=== PATIENT | female | born 1945 | race Caucasian/White ===

== ENCOUNTER 2021-09-22 13:00 | Emergency (ER) | payer BC, MEDICARE ==
[~2021-09-22] VITALS: Ht 160 cm; Wt 59.0 kg
[2021-09-22] MEDS ORDERED: LEVO50TA8 PO (14:13)
[2021-09-22] MEDS ORDERED: AMLO-212 PO (14:13)
--- NOTE | 2021-09-22 14:41 | NUR ---
Patient is awake ,alert, oriented x3 in no distres. States she is positive for covid. Sp02 99% on RA. EKG done. Covid swab sent to lab
--- NOTE | 2021-09-22 15:05 | NUR ---
Dr John aware of covid positive per lab
[2021-09-22 15:07] LABS: HEMATOCRIT 36.9 % (31.2-41.9); MEAN CORPUSCULAR HEMOGLOBIN 31.1 uug (24.7-32.8); MEAN CORPUSCULAR VOLUME 90.5 fL (75.5-95.3); PLATELET COUNT (AUTO) 335 K/uL (179-408)
[2021-09-22 15:18] LABS: CREATININE 0.8 mg/dL (0.6-1.3); POTASSIUM 4.2 mmol/L (3.5-5.1)
[2021-09-22 15:35] LABS: FERRITIN 71 ng/mL (8-252); LACTATE DEHYDROGENASE 206 U/L (81-234)
[2021-09-22] MEDS ORDERED: IV NORMAL SALINE 250 ML IV ONE (15:49)
[2021-09-22] MEDS ORDERED: IOHEXOL 350 100 ML INFUS..BTL ONE (15:49)
[2021-09-22] MEDS ORDERED: SWABABLE VALVE TRANSFER SET EA MC ONE (15:49)
[2021-09-22 15:57] LABS: BILIRUBIN,DIRECT 0.1 mg/dL (0.0-0.2); BILIRUBIN,TOTAL 0.4 mg/dL (0.2-1.0); TOTAL PROTEIN, SERUM 7.4 g/dL (6.4-8.2)
[2021-09-22] MEDS ORDERED: AZITHROMYCIN 250 MG TABLET PO ONE (17:00)
[2021-09-22] MEDS ORDERED: DEXAMETHASONE SOD PHOSPHATE 4 MG INJ IV ONE (17:00)
[2021-09-22] MEDS ORDERED: AZITHROMYCIN 250 MG TABLET ONE (17:13)
[2021-09-22] MEDS ORDERED: DEXAMETHASONE SOD PHOSPHATE 4 MG INJ ONE (17:13)
--- NOTE | 2021-09-22 17:16 | NUR ---
Patient ambulate to bathroom with steady gait, denied increasing SOB. Sp02 99%
--- NOTE | 2021-09-22 17:17 | NUR ---
IV removed. Catheter intact and site benign. Pressure and 4x4 gauze applied to site. No bleeding noted.
--- NOTE | 2021-09-22 17:17 | NUR ---
DC and follow up instructions given and explained to patient and daughter who states they understand all instructions
[2021-09-22] MEDS ORDERED: PRED50TA PO (17:20)
[2021-09-22] MEDS ORDERED: AZIT500T PO (17:20)
== END 2021-09-22 17:22 | disposition home or self-care (01) ==
LOC: ER 13:00
DX: U07.1 COVID-19 (principal); J12.82 Pneumonia due to coronavirus disease 2019; D17.5 Benign lipomatous neoplasm of intra-abdominal organs; I25.2 Old myocardial infarction; E03.9 Hypothyroidism, unspecified; I10 Essential (primary) hypertension
CPT/HCPCS: 36415; 71045; 71275; 80048; 80076; 82728; 83605; 83615; 83880; 84484; 85025; 85379; 87040 ×2; 87426; 93005; 96374; 99285; J1100; Q9967; 70030-TC; A4663; J7050; Q0144